=== PATIENT | female | born 1935 | race Caucasian/White ===

== ENCOUNTER → 2018-12-31 | Outpatient (CLI) | payer MEDICARE, OTHER | LOC: COL.VAS 14:13 | DX: H35.61 Retinal hemorrhage, right eye (principal); I10 Essential (primary) hypertension ==

== ENCOUNTER 2019-04-26 09:52 | Observation (INO) | payer MEDICARE, OTHER ==
[~2019-04-26] VITALS: Ht 152.4 cm; Wt 78.6 kg
[~2019-04-26 09:52] MED LIST: ARICEPT 5MG PO; ASPIRIN 32325 MG/TAB PO; DITROPAN XL 5MG5 M1 PO; ISMO 20MG20 MG PO; NORVASC 5MG5 MG/TAB PO; PRIL40 PO; TEGRETOL 2200 MG/TA1 PO; TOPROL XL 25MG25 MG PO; TYLENOL 8 HR PO; VITAMIN D 1001000 IU; ZANTAC 150MG T150 MG PO; ZOCOR 20MG20 MG PO
[2019-04-26 10:17] LABS: BASO # 0.1 (0.0-0.2); BASO % 0.7 % (0.0-2.0); EOS # 0.2 (0.0-0.7); EOS % 2.7 % (0-4.0); GRAN % 68.1 % (42.2-75.2); HEMATOCRIT 41.5 % (37.0-47.0); HEMOGLOBIN 13.7 g/dl (12.5-16.0); LYMPH # 1.4 (1.2-3.4); LYMPH % 18.5 % (20.0-51.0); MEAN CELL VOLUME 99 fl (80.0-100.0); MEAN CORPUSCULAR HEMOGLOBIN 33 pg (27.0-31.0); MEAN CORPUSCULAR HGB CONC 33 g/dl (33.0-37.0); MEAN PLATELET VOLUME 9.8 fl (7.4-10.4); MONO # 0.7 (0.1-0.6); MONO % 9.7 % (1.7-9.3); PLATELET COUNT 246 K/mm3 (130-400); RED BLOOD COUNT 4.18 M/mm3 (4.10-5.30); REDCELL DISTRIBUTION WIDTH-CV 13.2 % (11.5-14.5)
[2019-04-26 10:19] LABS: INR 1.1 (0.8-3.0); PROTHROMBIN TIME 12.3 SECONDS (9.7-12.8)
[2019-04-26 10:27] LABS: ALANINE AMINOTRANSFERASE < 6 U/L (9-52); ALBUMIN 4.3 gm/dL (3.5-5.0); ALKALINE PHOSPHATASE 100 U/L (50-136); ANION GAP 9 mmol/L (7-16); AST,SGOT 30 U/L (15-37); BILIRUBIN,TOTAL 0.5 mg/dL (0.0-1.0); BLOOD UREA NITROGEN 17 mg/dL (7-17); CALCIUM 9.4 mg/dL (8.4-10.2); CARBON DIOXIDE 29 mmol/L (22-30); CHLORIDE 102 mmol/L (98-107); GLUCOSE 97 mg/dL (74-106); LIPASE 63 U/L (23-300); POTASSIUM 4.2 mmol/L (3.4-5.0); SODIUM 139 mmol/L (137-145); TOTAL PROTEIN 7.4 gm/dL (6.4-8.2)
[2019-04-26 10:39] LABS: TROPONIN-I < 0.012 ng/mL (0.000-0.035)
[2019-04-26] MEDS ORDERED: SINEMET CR1 UDTAB.S1 PO (11:49)
[2019-04-26] MEDS ORDERED: ARICEPT 5MG PO (11:50)
[2019-04-26] MEDS ORDERED: ISMO 20MG20 MG PO (11:51)
[2019-04-26] MEDS ORDERED: TOPROL XL 25MG25 MG PO (11:51)
[2019-04-26] MEDS ORDERED: DITROPAN 5MG TAB5 MG PO (11:52)
[2019-04-26] MEDS ORDERED: COZAAR 50MG50 MG/TAB PO ×2 (12:24)
[2019-04-26 15:59] VITALS: BP 177/78; PULSE 48; TEMP 97.9
[2019-04-26 19:26] VITALS: BP 159/62; PULSE 53; TEMP 97.7
[2019-04-26 23:23] VITALS: BP 144/89; PULSE 69; TEMP 97.4
[2019-04-27] VITALS (18 sets, daily range): BP systolic 96–196; BP diastolic 46–85; PULSE 45–87; TEMP 97.6–98
[2019-04-27 06:46] LABS: BASO # 0.1 (0.0-0.2); BASO % 0.7 % (0.0-2.0); EOS # 0.2 (0.0-0.7); EOS % 3.3 % (0-4.0); GRAN # 4.7 (1.4-6.5); GRAN % 68.3 % (42.2-75.2); HEMATOCRIT 40.3 % (37.0-47.0); HEMOGLOBIN 13.4 g/dl (12.5-16.0); LYMPH # 1.2 (1.2-3.4); LYMPH % 16.8 % (20.0-51.0); MEAN CELL VOLUME 99 fl (80.0-100.0); MEAN CORPUSCULAR HEMOGLOBIN 33 pg (27.0-31.0); MEAN CORPUSCULAR HGB CONC 33 g/dl (33.0-37.0); MEAN PLATELET VOLUME 10.2 fl (7.4-10.4); MONO # 0.7 (0.1-0.6); MONO % 10.6 % (1.7-9.3); PLATELET COUNT 220 K/mm3 (130-400); RED BLOOD COUNT 4.09 M/mm3 (4.10-5.30); REDCELL DISTRIBUTION WIDTH-CV 13.2 % (11.5-14.5)
[2019-04-27 06:54] LABS: ANION GAP 7 mmol/L (7-16); BLOOD UREA NITROGEN 14 mg/dL (7-17); CARBON DIOXIDE 27 mmol/L (22-30); CHLORIDE 105 mmol/L (98-107); CHOLESTEROL 186 mg/dL (120-200); CHOLESTEROL RISK RATIO 3.4; CREATININE, serum 0.76 (0.52-1.25); GLUCOSE 90 mg/dL (74-106); HDL CHOLESTEROL 54 mg/dL; LDL CHOLESTEROL 89 mg/dL; POTASSIUM 3.9 mmol/L (3.4-5.0); SODIUM 138 mmol/L (137-145); TRIGLYCERIDE 213 mg/dL
[2019-04-27 07:16] LABS: TROPONIN-I < 0.012 ng/mL (0.000-0.035)
[2019-04-28 04:00] VITALS: BP 119/31; PULSE 54; TEMP 97.5
[2019-04-28 09:05] VITALS: BP 135/67; PULSE 59; TEMP 97.9
[2019-04-28] MEDS ORDERED: COZAAR 50MG50 MG/TAB PO (09:26)
[2019-04-28] MEDS ORDERED: ASPIRIN E.C. 8181 MG PO (09:27)
[2019-04-28] MEDS ORDERED: PEPCID 20MG TAB20 MG PO (09:28)
[2019-04-28 11:55] VITALS: BP 155/71; PULSE 60; TEMP 98.2
== END 2019-04-28 13:18 | disposition home or self-care (01) ==
LOC: COL.ER 09:52 → MEDICAL 14:00
PROVIDERS: Emergency Medicine; Physician Assistant; ADMIT Internal Medicine
DX: I25.110 Atherosclerotic heart disease of native coronary artery with unstable angina pectoris (principal); I10 Essential (primary) hypertension; G20 Parkinson's disease; I16.0 Hypertensive urgency; F03.90 Unspecified dementia, unspecified severity, without behavioral disturbance, psychotic disturbance, mood disturbance, and anxiety; K21.9 Gastro-esophageal reflux disease without esophagitis; Z95.5 Presence of coronary angioplasty implant and graft; Z79.82 Long term (current) use of aspirin; Z90.710 Acquired absence of both cervix and uterus; Z82.49 Family history of ischemic heart disease and other diseases of the circulatory system; Z88.2 Allergy status to sulfonamides; Z88.1 Allergy status to other antibiotic agents; Z88.8 Allergy status to other drugs, medicaments and biological substances
CPT/HCPCS: 99239; C1769; C9113; G0378; J1644; J1650; J2250; J3010; J7030; Q9967

== ENCOUNTER → 2019-06-27 | Outpatient (CLI) | payer MEDICARE, OTHER ==
[~2019-06-27] MED LIST changes: +ASPIRIN E.C. 8181 MG PO; +COZAAR 50MG50 MG/TAB PO; +DITROPAN 5MG TAB5 MG PO; +PEPCID 20MG TAB20 MG PO; +SINEMET CR1 UDTAB.S1 PO
== END ==
LOC: COL.RAD 09:00
DX: K29.70 Gastritis, unspecified, without bleeding (principal)

== ENCOUNTER → 2019-07-15 | Outpatient (CLI) | payer MEDICARE, OTHER | LOC: COL.RAD 07:50 | DX: K29.70 Gastritis, unspecified, without bleeding (principal) | CPT/HCPCS: A9541 ==

== ENCOUNTER → 2019-09-29 | Outpatient (CLI) | payer MEDICARE, OTHER | LOC: COL.VAS 10:53 | DX: H35.61 Retinal hemorrhage, right eye (principal); R42 Dizziness and giddiness ==

== ENCOUNTER → 2020-02-09 | Outpatient (CLI) | payer MEDICARE, OTHER ==
[~2020-02-09] MED LIST changes: +00186-0370-20 IH; +ARICEPT10 MG PO; +COZAAR 25MG25 MG/TAB PO; +IMDUR 30MG30 MG/TAB PO; +NITRO-DUR0.2 MG/PAT TD; +SINEMET 25/101 UDTAB PO; -SINEMET CR1 UDTAB.S1 PO; +TYLENOL 500MG500 MG PO; +VITAMIND3 5000 PO
== END ==
LOC: COL.LAB 08:00 → COL.CAR 02-15 09:30 → EDSTATUS 02-15 09:30
DX: Z20.828 Contact with and (suspected) exposure to other viral communicable diseases (principal)

== ENCOUNTER 2020-02-12 20:57 | Observation (INO) | payer MEDICARE, OTHER ==
[~2020-02-12] VITALS: Ht 152.4 cm; Wt 77.6 kg
[~2020-02-12 20:57] MED LIST changes: -NITRO-DUR0.2 MG/PAT TD; -TYLENOL 500MG500 MG PO
[2020-02-12 21:37] LABS: ALANINE AMINOTRANSFERASE 8 U/L (4-34); ALBUMIN 4.3 gm/dL (3.5-5.0); ALKALINE PHOSPHATASE 88 U/L (50-136); ANION GAP 8 mmol/L (7-16); AST,SGOT 21 U/L (15-37); BILIRUBIN,TOTAL 0.6 mg/dL (0.0-1.0); BLOOD UREA NITROGEN 17 mg/dL (7-17); CALCIUM 9.8 mg/dL (8.4-10.2); CARBON DIOXIDE 28 mmol/L (22-30); CHLORIDE 100 mmol/L (98-107); CREATINE KINASE 38 U/L (30-135); CREATININE, serum 0.82 (0.52-1.25); GLUCOSE 167 mg/dL (74-106); SODIUM 136 mmol/L (137-145); TOTAL PROTEIN 7.3 gm/dL (6.4-8.2)
[2020-02-12 21:41] LABS: BASO % 0.8 % (0.0-2.0); EOS # 0.1 (0.0-0.7); EOS % 2.2 % (0-4.0); GRAN # 2.8 (1.4-6.5); GRAN % 56.1 % (42.2-75.2); HEMATOCRIT 40.5 % (37.0-47.0); HEMOGLOBIN 13.2 g/dl (12.5-16.0); LYMPH # 1.6 (1.2-3.4); LYMPH % 31.1 % (20.0-51.0); MEAN CELL VOLUME 102 fl (80.0-100.0); MEAN CORPUSCULAR HEMOGLOBIN 33 pg (27.0-31.0); MEAN CORPUSCULAR HGB CONC 33 g/dl (33.0-37.0); MEAN PLATELET VOLUME 10.5 fl (7.4-10.4); MONO # 0.5 (0.1-0.6); MONO % 9.6 % (1.7-9.3); PLATELET COUNT 206 K/mm3 (130-400); RED BLOOD COUNT 3.96 M/mm3 (4.10-5.30); REDCELL DISTRIBUTION WIDTH-CV 12.3 % (11.5-14.5)
[2020-02-12 21:42] LABS: PROTHROMBIN TIME 11.7 SECONDS (9.7-12.8)
[2020-02-12 21:49] LABS: TROPONIN-I < 0.012 ng/mL (0.000-0.035)
[2020-02-12] MEDS ORDERED: TYLENOL 500MG500 MG PO (22:43)
[2020-02-12] MEDS ORDERED: NITRO-DUR0.2 MG/PAT TD (22:45)
[2020-02-12 23:50] VITALS: BP 121/66; PULSE 56; TEMP 97.8
[2020-02-13] VITALS (17 sets, daily range): BP systolic 121–149; BP diastolic 38–63; PULSE 43–75; TEMP 97.4–98
[2020-02-13 01:51] LABS: TROPONIN-I 3 HR POST INITIAL < 0.012 ng/mL (0.000-0.034)
[2020-02-13 03:46] LABS: BASO % 0.6 % (0.0-2.0); EOS # 0.2 (0.0-0.7); EOS % 2.3 % (0-4.0); GRAN # 3.9 (1.4-6.5); GRAN % 60.2 % (42.2-75.2); HEMOGLOBIN 12.1 g/dl (12.5-16.0); LYMPH # 1.6 (1.2-3.4); LYMPH % 24.2 % (20.0-51.0); MEAN CELL VOLUME 100 fl (80.0-100.0); MEAN CORPUSCULAR HEMOGLOBIN 33 pg (27.0-31.0); MEAN CORPUSCULAR HGB CONC 33 g/dl (33.0-37.0); MONO # 0.8 (0.1-0.6); MONO % 12.5 % (1.7-9.3); PLATELET COUNT 180 K/mm3 (130-400); RED BLOOD COUNT 3.62 M/mm3 (4.10-5.30); REDCELL DISTRIBUTION WIDTH-CV 12.2 % (11.5-14.5)
[2020-02-13 03:47] LABS: HEMATOCRIT 36.2 % (37.0-47.0)
[2020-02-13 03:55] LABS: ANION GAP 3 mmol/L (7-16); BLOOD UREA NITROGEN 15 mg/dL (7-17); CALCIUM 8.7 mg/dL (8.4-10.2); CARBON DIOXIDE 28 mmol/L (22-30); CHLORIDE 105 mmol/L (98-107); CHOLESTEROL 166 mg/dL (120-200); CHOLESTEROL RISK RATIO 2.8; GLUCOSE 78 mg/dL (74-106); HDL CHOLESTEROL 59 mg/dL; LDL CHOLESTEROL 77 mg/dL; POTASSIUM 4.2 mmol/L (3.4-5.0); SODIUM 136 mmol/L (137-145); TRIGLYCERIDE 149 mg/dL
[2020-02-13 04:23] LABS: TROPONIN-I < 0.012 ng/mL (0.000-0.035)
--- NOTE | 2020-02-13 04:57 | NUR ---
PATIENT CAME UP TO THE FLOOR FOR SOME CHEST PAIN MORE TIGHTNESS AND PRESSURE NOTED. PATIENT IS BRADYCARDIC ACCORDING TO TELEY. PATIENT HAS A CARDIOLOGY CONSULT IN ON HER. PATIENT IS NPO AT THIS TIME. PATIENT IS BEDREST WITH BSC ASSISTANCE. PATIENT HAS A 22 G IN HER LEFT FOREARM WITH FLUIDS GOING AT 30 MLS/HR. PATIENT HAS BEEN ALERT AND ORIENTATED. NO PAIN HAS BEEN REPORTED. WILL CONTINUE TO MONITOR. WILL REPORT OFF TO DAY SHIFT.
--- NOTE | 2020-02-13 08:18 | NUR ---
pt sob this am after bathroom visit. reports chest pressure'across top of chest'. vs stable as charted. on tele with no changes. labs reviewed. given morning meds including nitro patch. os sat >94% on 2l nc. denies vertigo, diaphoresis,or radiation of pain to limbs, jaw or back. npo for alleged stress test this AM
--- NOTE | 2020-02-13 11:40 | NUR ---
6 STITCHES TO BACK OF NECK FROM OUTPATIENT SKIN BIOPSY. INTACT WITH ONE STITCH SLIGHTLY DEHISED. GAUZE AND TAPE APPLIED TO PRESERVE SKIN.
--- NOTE | 2020-02-13 12:21 | NUR ---
SEE MERGE DOCUMENTATION FOR MEDICATION ADMINISTRATION TIMES AND INTRA/POST PROCEDURE SEDATION ASSESSMENTS. RIGHT HAND BARBEAU TEST POSITIVE.
--- NOTE | 2020-02-13 14:33 | NUR ---
ASH met with the patient to discuss discharge plan. The patient lives [facility] with her sister, Jessie Castillo (ph#[phone]). She reports independence with ADLs and has a cane. The patient's PCP is Dr. Blake Cr and she receives her medications at [facility]. She reports no difficulties obtaining her meds. The patient does not have advanced directives in EMR, but she reports that she does have them completed and that her sister (Jessie) is her DPOA-HC. The patient plans to return home with her sister upon discharge. The patient has a history of some Dementia and Parkinson's. SW contacted the patient's sister, Jessie, to review discharge plan and to update. Jessie confirmed the above information. She states that she is the patient's DPOA-HC and that Dr. Cr's office should have a copy of the documents. ASH contacted Dr. Cr's office and the industrial photographer reports that they do have a copy of the documents and will fax it to the medical unit. Jessie reports that she has no concerns with the patient returning back home with her upon discharge. The patient was requiring 2 liters of oxygen this morning. SW to continue to follow.
--- NOTE | 2020-02-13 15:05 | NUR ---
PT WITH BANDAID TO RT RADIAL AND GAUZE/TEGADERM DRESSING TO RT GROIN. STITCHES UNDERNEATH PER REPORT. ALBA C/Alfie/I
--- NOTE | 2020-02-13 20:00 | NUR ---
Assessment complete at this time. Patient does not complain of any chest discomfort and states her shortness of breath has improved. She does not show any signs of increased work of breathing; She is on room air. No edema or pain is present. Right groin cardiac cath site is covered with gauze and tegaderm and no signs of bleeding are noted. Will continue to monitor.
[2020-02-14] VITALS: BP 121/49; PULSE 51; TEMP 98
--- NOTE | 2020-02-14 01:43 | NUR ---
Upon further assessment of patient's left forearm IV, it appears reddened and irritated, yet still flushes well. Patient complains of mild pain when IV is flushed. New IV is initiated in the left lateral arm at this time. Will continue to monitor.
[2020-02-14 04:00] VITALS: BP 143/59; PULSE 61; TEMP 97.3
[2020-02-14 04:48] VITALS: BP 143/59; PULSE 61; TEMP 97.3
--- NOTE | 2020-02-14 06:53 | NUR ---
awake watching TV, bedside shift report received from TAYLOR Barry
[2020-02-14 07:30] VITALS: BP 153/50; PULSE 52; TEMP 98
--- NOTE | 2020-02-14 07:30 | NUR ---
watching TV, full assessment completed, see interventions for further info, right groin site with gauze CD&I and area is soft to palpation, has gauze dressing to right back side of neck, states had a biopsy there, this is CD&I, respirations are regular and patient states she does have some shortness of breath with some exertion
--- NOTE | 2020-02-14 09:00 | NUR ---
sitting up in bed watching TV, denies needs
--- NOTE | 2020-02-14 09:41 | NUR ---
Initial visit; Patient declined Spiritual Care.
--- NOTE | 2020-02-14 09:55 | NUR ---
Dr Breaux and care team in to see patient
--- NOTE | 2020-02-14 12:00 | NUR ---
INT discontinued, discharge instructions given to patient and she verbalizes understanding
[2020-02-14 12:13] VITALS: BP 149/57; PULSE 60; TEMP 98
--- NOTE | 2020-02-14 12:50 | NUR ---
discharged per WC
== END 2020-02-14 12:50 | disposition home or self-care (01) ==
LOC: COL.ER 20:57 → MEDICAL 22:05
PROVIDERS: Emergency Medicine; Nurse Practitioner Family; ADMIT Internal Medicine
DX: R07.89 Other chest pain (principal); R06.02 Shortness of breath; I10 Essential (primary) hypertension; E78.5 Hyperlipidemia, unspecified; I25.10 Atherosclerotic heart disease of native coronary artery without angina pectoris; G20 Parkinson's disease; K21.9 Gastro-esophageal reflux disease without esophagitis; F03.90 Unspecified dementia, unspecified severity, without behavioral disturbance, psychotic disturbance, mood disturbance, and anxiety; E87.1 Hypo-osmolality and hyponatremia; Z88.2 Allergy status to sulfonamides; Z88.1 Allergy status to other antibiotic agents; Z88.8 Allergy status to other drugs, medicaments and biological substances; Z79.82 Long term (current) use of aspirin; Z90.710 Acquired absence of both cervix and uterus
CPT/HCPCS: 99223-AI; 99239; C1760; C1769; C1894; G0378; J1644; J1650; J2250; J2270; J3010; J7030; Q9967

== ENCOUNTER 2021-03-24 08:05 | Inpatient (IN) | payer MEDICARE, OTHER ==
[~2021-03-24] VITALS: Ht 152.5 cm; Wt 80.0 kg
[~2021-03-24 08:05] MED LIST changes: +NITRO-DUR0.2 MG/PAT TD; +TYLENOL 500MG500 MG PO
[2021-03-24 08:26] LABS: BASO % 0.8 % (0.0-2.0); EOS # 0.1 (0.0-0.7); EOS % 2.6 % (0-4.0); GRAN # 3.2 (1.4-6.5); GRAN % 59.4 % (42.2-75.2); HEMATOCRIT 40.2 % (37.0-47.0); HEMOGLOBIN 13.7 g/dl (12.5-16.0); LYMPH # 1.4 (1.2-3.4); LYMPH % 25.5 % (20.0-51.0); MEAN CELL VOLUME 96 fl (80.0-100.0); MEAN CORPUSCULAR HEMOGLOBIN 33 pg (27.0-31.0); MEAN CORPUSCULAR HGB CONC 34 g/dl (33.0-37.0); MEAN PLATELET VOLUME 10.5 fl (7.4-10.4); MONO # 0.6 (0.1-0.6); MONO % 11.3 % (1.7-9.3); PLATELET COUNT 226 K/mm3 (130-400); RED BLOOD COUNT 4.17 M/mm3 (4.10-5.30); REDCELL DISTRIBUTION WIDTH-CV 12.4 % (11.5-14.5)
[2021-03-24 08:33] LABS: PROTHROMBIN TIME 11.6 SECONDS (9.7-12.8)
[2021-03-24 08:35] LABS: PARTIAL THROMBOPLASTIN TIME 24.9 SECONDS (26.0-37.0)
[2021-03-24 08:38] LABS: ALANINE AMINOTRANSFERASE 13 U/L (4-34); ALBUMIN 4.5 gm/dL (3.5-5.0); ALKALINE PHOSPHATASE 84 U/L (50-136); ANION GAP 9 mmol/L (7-16); AST,SGOT 24 U/L (15-37); BILIRUBIN,TOTAL 0.8 mg/dL (0.0-1.0); BLOOD UREA NITROGEN 16 mg/dL (7-17); CALCIUM 9.8 mg/dL (8.4-10.2); CARBON DIOXIDE 26 mmol/L (22-30); CHLORIDE 96 mmol/L (98-107); CREATININE, serum 0.91 (0.52-1.25); GLUCOSE 109 mg/dL (74-106); POTASSIUM 4.9 mmol/L (3.4-5.0); SODIUM 131 mmol/L (137-145); TOTAL PROTEIN 7.5 gm/dL (6.4-8.2)
[2021-03-24 08:51] LABS: TROPONIN-I < 0.012 ng/mL (0.000-0.035)
[2021-03-24] MEDS ORDERED: NAMENDA 10MG TA10 MG PO (11:43)
[2021-03-24] MEDS ORDERED: EXELON 1.5MG1.5 MG PO (11:44)
[2021-03-24] MEDS ORDERED: TOPROL XL 25MG25 MG PO (11:49)
--- NOTE | 2021-03-24 13:41 | NUR ---
PT UP TO BEDSIDE COMMODE, VOIDED AND RETURNED TO BED WITH SBA.
[2021-03-24 15:59] VITALS: BP 136/40; PULSE 59; TEMP 98.1
[2021-03-24 20:40] VITALS: BP 143/52; PULSE 61; TEMP 98
[2021-03-25] VITALS (10 sets, daily range): BP systolic 106–143; BP diastolic 43–82; PULSE 50–99; TEMP 97.3–98.1
--- NOTE | 2021-03-25 06:17 | NUR ---
PT IN BED. ASSIST OF 1 TO AMBULATE TO TOILET. NO c/o CHEST PAIN. BED ALARM ON.
--- NOTE | 2021-03-25 07:00 | NUR ---
Report received form TAYLOR Concepcion. PT in bed resting, denies needs, will continue to monitor.
[2021-03-25 08:01] LABS: BASO % 0.7 % (0.0-2.0); EOS # 0.1 (0.0-0.7); EOS % 2.4 % (0-4.0); GRAN # 3.5 (1.4-6.5); GRAN % 60.1 % (42.2-75.2); HEMATOCRIT 39.6 % (37.0-47.0); HEMOGLOBIN 13.1 g/dl (12.5-16.0); LYMPH # 1.3 (1.2-3.4); LYMPH % 23.1 % (20.0-51.0); MEAN CELL VOLUME 99 fl (80.0-100.0); MEAN CORPUSCULAR HEMOGLOBIN 33 pg (27.0-31.0); MEAN CORPUSCULAR HGB CONC 33 g/dl (33.0-37.0); MEAN PLATELET VOLUME 10.9 fl (7.4-10.4); MONO # 0.8 (0.1-0.6); MONO % 13.4 % (1.7-9.3); PLATELET COUNT 217 K/mm3 (130-400); REDCELL DISTRIBUTION WIDTH-CV 12.7 % (11.5-14.5)
[2021-03-25 08:25] LABS: CALCIUM 9.5 mg/dL (8.4-10.2); CREATININE, serum 0.97 (0.52-1.25); POTASSIUM 4.4 mmol/L (3.4-5.0)
--- NOTE | 2021-03-25 12:12 | NUR ---
Assessment charted. PT resting in bed, did have lexiscan this am, echocardiogram, having MRI head now. INT to LH. 02 at 3L NC. Denies chest pain, will continue to monitor.
--- NOTE | 2021-03-25 14:20 | NUR ---
SW attempted to meet with patient but she was having a stress test. Patient's sister & DPOA, Jessie Castillo, was in the room and able to answer questions. Patient lives with sister and brother n law in a single family ranch dwelling in [place]. Patient is & has [place] and ; she uses [facility] and for her medication needs and she has no difficulty affording meds. She has no children but siblings in [place], [place], & [place]. Patient is on 2L of 02 through [employer]. Sister states patient has a cane and a walker but patient rarely uses either. Her PCP is Dr. Cr. *D/C home w/ no needs likely
--- NOTE | 2021-03-25 18:14 | NUR ---
Pt resting in bed, eating supper, clarified some of home meds with Dr. Barker office and updated CAMELIA Marie with hospitalist, changes made. Pt doin well, remains on 02 at 2L NC per her baseline. Disucssed plan for PATTI, aware of NPO at midnight. Will give report to nightshift nurse who will resume care.
--- NOTE | 2021-03-25 20:30 | NUR ---
PT'S BP IS LOW @ 123/43. PT STATES THAT THIS IS NORMAL FOR HER ET THAT IF SHE DOES NOT TAKE HER BP PILLS THAT IT WILL BECOME HIGH. EXPLAINED TO PT THAT SCHEDULED LOSARTAN CAN DECREASE BP MORE, PT STATES THAT SHE STILL WANTS THE MEDICATION GIVEN TO HER. LOSARTAN PO ADMINISTERED. WILL CONTINUE TO MONITOR.
[2021-03-26] VITALS (13 sets, daily range): BP systolic 92–165; BP diastolic 43–77; PULSE 50–66; TEMP 97.5–98
--- NOTE | 2021-03-26 05:00 | NUR ---
PT IS AWAKE. CARDIOPULMONARY WAS IN TO DO EKG. PT IS PLEASANT ET DENIES ANY PAIN THIS MORNING. BP IS IMPROVED @ 132/47. PROTONIX PO GIVEN WITH SMALL SIP OF WATER. SBA USED TO AMBULATE TO BR. PT IS INCONTINENT OF URINE ET CHANGES OWN BRIEFS ET PAD. PT AMBULATES BACK TO BED, DENIES OTHER NEEDS. CALL LIGHT WITHIN REACH.
[2021-03-26 07:07] LABS: BASO % 0.7 % (0.0-2.0); EOS # 0.2 (0.0-0.7); EOS % 2.5 % (0-4.0); GRAN # 3.8 (1.4-6.5); GRAN % 64.1 % (42.2-75.2); HEMATOCRIT 40.5 % (37.0-47.0); LYMPH # 1.2 (1.2-3.4); LYMPH % 19.5 % (20.0-51.0); MEAN CELL VOLUME 102 fl (80.0-100.0); MEAN CORPUSCULAR HEMOGLOBIN 33 pg (27.0-31.0); MEAN CORPUSCULAR HGB CONC 32 g/dl (33.0-37.0); MONO # 0.8 (0.1-0.6); MONO % 12.7 % (1.7-9.3); PLATELET COUNT 206 K/mm3 (130-400); RED BLOOD COUNT 3.96 M/mm3 (4.10-5.30); REDCELL DISTRIBUTION WIDTH-CV 12.7 % (11.5-14.5)
[2021-03-26 07:11] LABS: CALCIUM 9.5 mg/dL (8.4-10.2); CREATININE, serum 0.96 (0.52-1.25); POTASSIUM 4.2 mmol/L (3.4-5.0)
--- NOTE | 2021-03-26 08:00 | NUR ---
Patient in bed resting. Alert and oriented x 3. Assessment complte. Denies pain at this time. Patient on 2 L of O2 per NC. Denies needs at this time.
--- NOTE | 2021-03-26 10:50 | NUR ---
Patient to express for PATTI by wheelchair.
--- NOTE | 2021-03-26 12:00 | NUR ---
Patient back from PATTI. Denies needs at this time.
--- NOTE | 2021-03-26 13:30 | NUR ---
Patient was out of room, getting PATTI when SW attempted to meet with her. SW spoke with pt's sister/POA and informed her of the need for patient's portable 02 needed at the time of discharge. *anticipate patient will d/c home with 2L 02
--- NOTE | 2021-03-26 15:23 | NUR ---
PT USES 2LPM AT HOME PT SATURATION DROPPED TO 87% ON 2LPM INCREASED TO 3LPM TO MAINTAINS SPO2, PT DOING WELL AT REST ON 2LPM POST WALK
[2021-03-26] MEDS ORDERED: OXYGEN NASAL.CANN ×2 (16:14)
--- NOTE | 2021-03-26 16:33 | NUR ---
Pocket Setter met with patient to review discharge plan. Patient is interested in Home Health services and selected [facility]. SW contacted Soni at [facility] and faxed referral and orders. SW also faxed updated oxygen orders to patient's DME provider, [employer]. Patient reports she has her portable oxygen to get home on.
--- NOTE | 2021-03-26 17:58 | NUR ---
Discharge education provided to patient. Educated on medication changes and when to call provider. Patient educated on all follow up appointments. All questions answered. Patient denies additional needs at this time. Patient will call when her ride is available to pick her up
--- NOTE | 2021-03-26 18:54 | NUR ---
Patient doing well throughout the day. Has been up ambulating in room with SBA and walker; steady gait. Denies pain at this time. Denies further needs at this time. Reported off to manufacturing shift supervisor.
--- NOTE | 2021-03-26 19:55 | NUR ---
PT TAKEN VIA WC TO MEET SISTER @ ER ENTRANCE FOR RIDE HOME. HOME OXYGEN IS ON. PERIPHERAL IV ET TELE DCED. PT BELONGINGS IN BAG WITH PT.
== END 2021-03-26 19:55 | disposition home health service (06) | DRG 313 ==
LOC: COL.ER 08:05 → SURG 10:05
PROVIDERS: Emergency Medicine; Physician Assistant
DX: R07.9 Chest pain, unspecified (principal); J84.9 Interstitial pulmonary disease, unspecified; I25.10 Atherosclerotic heart disease of native coronary artery without angina pectoris; I10 Essential (primary) hypertension; J44.9 Chronic obstructive pulmonary disease, unspecified; K21.9 Gastro-esophageal reflux disease without esophagitis; I08.3 Combined rheumatic disorders of mitral, aortic and tricuspid valves; G20 Parkinson's disease; Z20.822 Contact with and (suspected) exposure to COVID-19; R09.02 Hypoxemia; R51.9 Headache, unspecified; R20.2 Paresthesia of skin; E78.5 Hyperlipidemia, unspecified; Z79.82 Long term (current) use of aspirin; Z88.2 Allergy status to sulfonamides; Z88.8 Allergy status to other drugs, medicaments and biological substances; Z95.5 Presence of coronary angioplasty implant and graft
CPT/HCPCS: 99223-AI; 99232-AI; 99233-AI; A9500; A9585; J1650; J2060; J2704; J2785

== ENCOUNTER 2021-07-04 12:56 | Emergency (ER) | payer MEDICARE, OTHER ==
[~2021-07-04] VITALS: Ht 152.4 cm; Wt 74.1 kg
[~2021-07-04 12:56] MED LIST changes: -DECADRON6 MG PO
[2021-07-04 14:25] LABS: BASO % 0.4 % (0.0-2.0); EOS % 0.2 % (0.0-4.0); GRAN # 2.8 K/mm3 (1.4-6.5); GRAN % 63.9 % (42.2-75.2); LYMPH # 0.9 K/mm3 (1.2-3.4); LYMPH % 19.3 % (20.0-51.0); MEAN CELL VOLUME 101 fl (80.0-100.0); MEAN CORPUSCULAR HEMOGLOBIN 33 pg (27-31); MEAN CORPUSCULAR HGB CONC 33 g/dl (33.0-37.0); MEAN PLATELET VOLUME 10.2 fl (7.4-10.4); MONO # 0.7 K/mm3 (0.1-0.6); PLATELET COUNT 181 K/mm3 (130-400); RED BLOOD COUNT 3.64 M/mm3 (4.10-5.30); REDCELL DISTRIBUTION WIDTH-CV 12.7 % (11.5-14.5)
[2021-07-04 14:27] LABS: HEMATOCRIT 36.6 % (37.0-47.0)
[2021-07-04 14:41] LABS: ALANINE AMINOTRANSFERASE < 6 U/L (0-55); ALBUMIN 3.6 gm/dL (3.4-4.8); ALKALINE PHOSPHATASE 63 U/L (40-150); ANION GAP 10 mmol/L (7-16); AST,SGOT 16 U/L (5-34); BILIRUBIN,TOTAL 0.5 mg/dL (0.2-1.2); BLOOD UREA NITROGEN 15 mg/dL (10-20); C-REACTIVE PROTEIN 2.73 mg/dL (0.00-0.50); CALCIUM 8.7 mg/dL (8.4-10.2); CARBON DIOXIDE 25 mmol/L (23-31); CHLORIDE 104 mmol/L (98-107); CREATININE, serum 0.86 mg/dL (0.57-1.11); GLUCOSE 97 mg/dL (70-99); POTASSIUM 3.6 mmol/L (3.5-4.5); SODIUM 139 mmol/L (136-145); TOTAL PROTEIN 6.5 gm/dL (6.2-8.1)
[2021-07-04 14:47] LABS: TROPONIN-I < 0.010 ng/mL (0.00-0.033)
[2021-07-04 16:55] VITALS: TEMP 99
[2021-07-04] MEDS ORDERED: DECADRON6 MG PO (17:30)
[2021-07-04 18:00] VITALS: BP 180/61; PULSE 58
== END 2021-07-04 18:08 | disposition home or self-care (01) ==
LOC: COL.ER 12:56
PROVIDERS: Nurse Practitioner
DX: U07.1 COVID-19 (principal); I25.10 Atherosclerotic heart disease of native coronary artery without angina pectoris; I10 Essential (primary) hypertension; G20 Parkinson's disease; Z95.0 Presence of cardiac pacemaker; Z73.0 Burn-out; Z99.81 Dependence on supplemental oxygen; Z79.899 Other long term (current) drug therapy
CPT/HCPCS: J8540; M0245

== ENCOUNTER → 2021-07-04 | Outpatient (CLI) | payer MEDICARE, OTHER ==
[~2021-07-04] MED LIST changes: +DECADRON6 MG PO; +EXELON 1.5MG1.5 MG PO; +NAMENDA 10MG TA10 MG PO; +OXYGEN NASAL.CANN
== END ==
LOC: ZCOL.LAB 09:00
DX: U07.1 COVID-19 (principal)

== ENCOUNTER → 2022-08-08 | Outpatient (CLI) | payer MEDICARE, OTHER, MEDICAID ==
[~2022-08-08] MED LIST changes: +DECADRON6 MG PO
== END ==
LOC: COL.RAD 10:49
DX: R20.0 Anesthesia of skin (principal)

== ENCOUNTER 2022-11-04 09:54 | Emergency (ER) | payer MEDICARE, OTHER, MEDICAID ==
[~2022-11-04] VITALS: Ht 152.4 cm; Wt 71.4 kg
[2022-11-04 10:04] VITALS: TEMP 97.3
[2022-11-04 11:12] VITALS: BP 141/81; PULSE 63
== END 2022-11-04 11:12 | disposition home or self-care (01) ==
LOC: COL.ER 09:54
DX: R51.9 Headache, unspecified (principal); M54.2 Cervicalgia

== ENCOUNTER 2023-10-25 21:20 | Emergency (ER) | payer MEDICARE, OTHER, MEDICAID ==
[~2023-10-25] VITALS: Ht 121.9 cm; Wt 69.1 kg
[2023-10-25 21:32] VITALS: TEMP 97.6
[2023-10-25 21:58] LABS: BASO % 0.5 % (0.0-2.0); EOS # 0.1 K/mm3 (0.0-0.7); EOS % 0.9 % (0.0-4.0); GRAN # 4.7 K/mm3 (1.4-6.5); GRAN % 61.9 % (42.2-75.2); HEMATOCRIT 35.1 % (37.0-47.0); HEMOGLOBIN 11.6 g/dl (12.5-16.0); LYMPH % 25.8 % (20.0-51.0); MEAN CELL VOLUME 91 fl (80.0-100.0); MEAN CORPUSCULAR HEMOGLOBIN 30 pg (27-31); MEAN CORPUSCULAR HGB CONC 33 g/dl (33.0-37.0); MEAN PLATELET VOLUME 9.2 fl (7.4-10.4); MONO # 0.8 K/mm3 (0.1-0.6); MONO % 10.6 % (1.7-9.3); PLATELET COUNT 314 K/mm3 (130-400); RED BLOOD COUNT 3.85 M/mm3 (4.10-5.30)
[2023-10-25 22:15] LABS: ALKALINE PHOSPHATASE 72 U/L (40-150); ANION GAP 14 mmol/L (7-16); AST,SGOT 16 U/L (5-34); BILIRUBIN,TOTAL 0.6 mg/dL (0.2-1.2); BLOOD UREA NITROGEN 18 mg/dL (10-20); CALCIUM 10.2 mg/dL (8.4-10.2); CHLORIDE 93 mEq/L (98-107); CREATININE, serum 1.04 mg/dL (0.57-1.11); GLUCOSE 119 mg/dL (70-99); POTASSIUM 3.7 mEq/L (3.5-4.5); SODIUM 131 mEq/L (136-145); TOTAL PROTEIN 7.4 g/dl (6.2-8.1)
[2023-10-25 22:20] LABS: ALANINE AMINOTRANSFERASE < 6 U/L (0-55)
[2023-10-25 22:26] LABS: TROPONIN-I < 0.010 ng/mL (0.00-0.033)
[2023-10-25 23:13] VITALS: BP 179/76; PULSE 57
== END 2023-10-25 23:13 | disposition home or self-care (01) ==
LOC: COL.ER 21:20
PROVIDERS: Nurse Practitioner Primary Care
DX: R06.02 Shortness of breath (principal)

== ENCOUNTER 2023-11-13 09:46 | Emergency (ER) | payer MEDICARE, OTHER, MEDICAID ==
[~2023-11-13] VITALS: Ht 152.4 cm; Wt 70.5 kg
[2023-11-13 10:21] LABS: BASO # 0.1 K/mm3 (0.0-0.2); BASO % 0.6 % (0.0-2.0); EOS # 0.1 K/mm3 (0.0-0.7); EOS % 0.6 % (0.0-4.0); GRAN # 6.8 K/mm3 (1.4-6.5); GRAN % 73.1 % (42.2-75.2); HEMATOCRIT 35.4 % (37.0-47.0); HEMOGLOBIN 11.5 g/dl (12.5-16.0); LYMPH # 1.5 K/mm3 (1.2-3.4); LYMPH % 16.1 % (20.0-51.0); MEAN CELL VOLUME 92 fl (80.0-100.0); MEAN CORPUSCULAR HEMOGLOBIN 30 pg (27-31); MEAN CORPUSCULAR HGB CONC 33 g/dl (33.0-37.0); MEAN PLATELET VOLUME 9.2 fl (7.4-10.4); MONO # 0.9 K/mm3 (0.1-0.6); MONO % 9.3 % (1.7-9.3); PLATELET COUNT 320 K/mm3 (130-400); RED BLOOD COUNT 3.86 M/mm3 (4.10-5.30); REDCELL DISTRIBUTION WIDTH-CV 14.5 % (11.5-14.5)
[2023-11-13 10:47] LABS: ALBUMIN 3.7 g/dL (3.4-4.8); ALKALINE PHOSPHATASE 68 U/L (40-150); ANION GAP 12 mmol/L (7-16); AST,SGOT 14 U/L (5-34); BILIRUBIN,TOTAL 0.5 mg/dL (0.2-1.2); BLOOD UREA NITROGEN 17 mg/dL (10-20); CALCIUM 10.2 mg/dL (8.4-10.2); CHLORIDE 96 mEq/L (98-107); CREATININE, serum 0.99 mg/dL (0.57-1.11); GLUCOSE 107 mg/dL (70-99); POTASSIUM 3.9 mEq/L (3.5-4.5); SODIUM 134 mEq/L (136-145)
[2023-11-13 10:48] LABS: ALANINE AMINOTRANSFERASE < 6 U/L (0-55)
[2023-11-13 11:01] LABS: TROPONIN-I < 0.010 ng/mL (0.00-0.033)
[2023-11-13 11:19] LABS: PH 6.5 (5.0-8.5); URINE APPEARANCE CLEAR (CLEAR/HAZY); URINE BLOOD NEGATIVE (NEGATIVE); URINE COLOR YELLOW (YELLOW); URINE GLUCOSE NEGATIVE (NEGATIVE); URINE KETONE TRACE (NEGATIVE); URINE NITRATE NEGATIVE (NEGATIVE); URINE PROTEIN(semi-quant) NEGATIVE (NEGATIVE)
[2023-11-13 11:41] LABS: COLLECTION METHOD CLEAN CATCH
[2023-11-13 12:36] VITALS: BP 166/63; PULSE 51; TEMP 97.7
== END 2023-11-13 12:36 | disposition home or self-care (01) ==
LOC: COL.ER 09:46
PROVIDERS: Physician Assistant
DX: R53.1 Weakness (principal); T42.8X5A Adverse effect of antiparkinsonism drugs and other central muscle-tone depressants, initial encounter; G20.A1 Parkinson's disease without dyskinesia, without mention of fluctuations; D64.9 Anemia, unspecified; R00.1 Bradycardia, unspecified

== ENCOUNTER 2024-03-30 09:37 | Emergency (ER) | payer MEDICARE, OTHER, MEDICAID ==
[~2024-03-30] VITALS: Ht 149.9 cm; Wt 70.9 kg
[2024-03-30 09:41] VITALS: TEMP 97.8
[2024-03-30 11:02] VITALS: BP 159/66; PULSE 57
== END 2024-03-30 11:19 | disposition home or self-care (01) ==
LOC: COL.ER 09:37
DX: M79.601 Pain in right arm (principal)

== ENCOUNTER → 2024-03-31 | Outpatient (CLI) | payer MEDICARE, OTHER, MEDICAID | LOC: COL.RAD 07:28 | DX: M79.601 Pain in right arm (principal) ==

== ENCOUNTER → 2024-04-11 | Outpatient (RCR) | payer MEDICARE, OTHER, MEDICAID | END | disposition home or self-care (01) | LOC: WSST | DX: R13.12 Dysphagia, oropharyngeal phase (principal) ==

== ENCOUNTER → 2024-04-21 | Outpatient (CLI) | payer MEDICARE, OTHER, MEDICAID | LOC: COL.RAD 08:25 | DX: R13.12 Dysphagia, oropharyngeal phase (principal) ==